=== PATIENT | male | born 1965 | race Caucasian/White ===

== ENCOUNTER 2022-12-01 06:20 | Observation (INO) ==
--- NOTE | 2022-11-16 13:29 | PAT Medication Instructions ---
Medication Instructions Date of Service November 16, 2022 Home Medications furosemide 40 mg tablet (Lasix) 40 mg PO DAILY PRN swelling indomethacin 50 mg capsule 50 mg PO Q8H PRN Pain lisinopril 20 mg tablet 20 mg PO QAM magnesium oxide 400 mg PO BID metolazone 2.5 mg tablet 2.5 mg PO 2XWK metoprolol succinate 25 mg tablet,extended release 24 hr 25 mg PO QAM potassium chloride 10 mEq capsule,extended release 10 meq PO QAM rivaroxaban 20 mg tablet (Xarelto) 20 mg PO QAM meloxicam 15 mg tablet 15 mg PO QAM rosuvastatin 5 mg tablet 5 mg PO QAM ASK your surgeon for instructions meloxicam 15 mg tablet 15 mg PO QAM indomethacin 50 mg capsule 50 mg PO Q8H PRN Pain ASK your prescriber and surgeon rivaroxaban 20 mg tablet (Xarelto) 20 mg PO QAM (From anesthesia perspective, Rivaroxaban/Xarelto needs to be stopped 72 hours/3 days before surgery. Please check if okay with doctor that prescribes this to you) DO NOT take the morning of surgery furosemide 40 mg tablet (Lasix) 40 mg PO DAILY PRN swelling lisinopril 20 mg tablet 20 mg PO QAM magnesium oxide 400 mg PO BID metolazone 2.5 mg tablet 2.5 mg PO 2XWK potassium chloride 10 mEq capsule,extended release 10 meq PO QAM Take morning of surgery With a small sip of water, OTHERWISE NOTHING TO EAT OR DRINK AFTER MIDNIGHT: metoprolol succinate 25 mg tablet,extended release 24 hr 25 mg PO QAM rosuvastatin 5 mg tablet 5 mg PO QAM Take evening before surgery furosemide 40 mg tablet (Lasix) 40 mg PO DAILY PRN swelling (if needed) magnesium oxide 400 mg PO BID Other Notes If you have any questions please call us at [phone] or [phone] or [phone] or [phone]
--- NOTE | 2022-11-22 14:02 | Anesthesiology Consultation ---
Date of Service November 22, 2022 Assessment & Plan (1) Encounter for pre-operative examination: - Check BSG AM DOS - Infectious disease screening: Per assessment on 11/22: No known infectious disease contacts or current infectious disease symptoms. - Outpatient joint assessment: Pt currently scheduled for inpatient pathway. If surgeon requests review for outpatient joint pathway, patient is not recommended candidate for outpatient joint program from anesthesia standpoint. - Heavy ETOH use: 6-8 beers/day (evening, no morning ETOH use per patient) - Cardiology visit (11/16/22): "He reports nonprogressive functional class II shortness of breath and fatigue. He gets his leg swelling but improved.. Underwent cardiac catheterization 08/07/2021 which showed normal coronaries.. Obesity hypoventilation syndrome which is likely the reason for his symptoms.. Continue auto BiPAP which is improving his symptoms and he is getting used to the machine.. He is considered at a low to intermediate cardiac risk for his right TKA. He is allowed to discontinue Xarelto for 3 days prior to surgery. No need for Lovenox bridging. - Cardiology note (11/16/22): "Low to moderate risk.. ok to stop Xarelto for 3 days prior to surgery" - Preop testing: Patient unable to void at [facility]. Per [facility] tech, patient will be taking urine sample to "[facility]" in near future- order with our return fax number given to patient. Awaiting preop UA. - Elevated creatinine: Preop creatinine 1.52 on 11/22/22 labs (comparison labs scanned into system from 11/2020 show creatinine elevated at 1.8). Do not have more recent labs/noted history of CKD reported by patient at PAT visit. Note written to PCP regarding elevated creatinine- Awaiting response ([facility]). Chart Review Chart Review: Patient seen in Pre Admission Testing History Surgery Operation Date: 12/01/22 08:50 Proposed Procedures p Right Total Knee Arthroplasty - Itz Chery MD Height/Weight Height: 6 ft Weight: 161.3 kg Allergies Allergy/AdvReac Type Severity Reaction Status Date / Time No Known Allergies Allergy Verified 11/19/22 10:41 Medications Home Medications Medication Instructions Recorded Confirmed Last Taken furosemide 40 mg tablet (Lasix) 40 mg PO DAILY PRN swelling 12/25/20 11/16/22 Unknown indomethacin 50 mg capsule 50 mg PO Q8H PRN Pain 12/25/20 11/16/22 Unknown lisinopril 20 mg tablet 20 mg PO QAM 12/25/20 11/16/22 Unknown magnesium oxide 400 mg PO BID 12/25/20 11/16/22 Unknown metolazone 2.5 mg tablet 2.5 mg PO 2XWK 12/25/20 11/16/22 Unknown metoprolol succinate 25 mg 25 mg PO QAM 12/25/20 11/16/22 Unknown tablet,extended release 24 hr potassium chloride 10 mEq 10 meq PO QAM 12/25/20 11/16/22 Unknown capsule,extended release rivaroxaban 20 mg tablet (Xarelto) 20 mg PO QAM 12/25/20 11/16/22 Unknown meloxicam 15 mg tablet 15 mg PO QAM 11/16/22 11/16/22 Unknown rosuvastatin 5 mg tablet 5 mg PO QAM 11/16/22 11/16/22 Unknown Past Medical History Medical History Atrial fibrillation Follows with Dr. Knott Last visit 11/16/22 Taking Xarelto daily Essential hypertension Hyperlipidemia Idiopathic gout, unspecified site Lumbar spondylosis Lymphedema Morbid obesity Neurogenic claudication Obstructive sleep apnea CPAP (compliant) Osteoarthritis of knee, unspecified Type 2 diabetes mellitus Per PCP records, no longer taking oral meds/working on diet control Exercise / Class Metabolic Activity III < 4 Walking/Shop/Light housework (decreased activity in setting of worsening knee pain (No CP with daily activities but does report SOB with activity)) Past Family History Family History Other No family history of adverse response to anesthesia Past Surgical History Surgical History Hx of cardiac catheterization 07/2021- no stents, "no angiographically significant coronary disease" Hx of colonoscopy Hx of knee surgery right knee, multiple Perianal abscess I&D Past Anesthesia History No Hx of Anesthesia Complications and No Family Hx of Anesthesia Complications History of PONV No Hx of PONV and No Hx of Motion Sickness Social History Smoking Status: Never smoker Do You Dip or Chew Tobacco: Yes (Daily, Advised none DOS) Hx Alcohol Use: Yes (5-6 PER DAY) Alcohol type: beer alcohol intake frequency: 3 or more drinks per day (6-8 beers/day (evening, no morning ETOH use)) Hx Substance Use: No substance use type: does not use Review of Systems + chronic GUERRERO, stable. Patient denies chest pain, shortness of breath, fever, chills, cough, wheezing, palpitations. Physical Exam Vital Signs VITALS BP 100/69 P 95 TEMP 98.7 SP02 97%RA RESP 20 PHYSICAL Full cervical extension range of motion. Full TMJ range of motion. TMD 4 finger breaths Mallampati Score 3 Dentition: missing molar Lungs: clear throughout to auscultation Cardiac: regular rate and rhythm, no murmurs noted Spine: normal Carotid arteries: negative bruit Extremities: no LE edema Thick neck Lab Results Anesthesia Preop Results Results Anesthesia Widget: WBC 7.56 K/ul (4.8-10.8) 11/22/22 Hgb 14.2 g/dl (14.0-18.0) 11/22/22 Hct 40.8 % (42.0-52.0) L 11/22/22 Plt 224 K/uL (130-400) 11/22/22 Na 131 mmol/L (136-145) L 11/22/22 K 4.5 mmol/L (3.5-5.1) 11/22/22 Cl 95 mmol/L (98-107) L 11/22/22 CO2 23 mmol/L (21-32) 11/22/22 BUN 36 mg/dl (6-23) H 11/22/22 Creat 1.52 mg/dl (0.6-1.4) H 11/22/22 Glucose Level 133 mg/dl (70-99(Fasting)) H 11/22/22 PT 12.8 Seconds (9.0-12.0) H 11/22/22 PTT 29.3 Seconds (21.0-31.0) 11/22/22 INR 1.2 (0.9-1.1) H 11/22/22 HA1c 6.4 % (4.5-5.6) H 11/22/22 Blood Type AB Positive 11/22/22 Antibody Screen NEGATIVE 11/22/22 Testing Laboratory Results *Sodium low at 131- comparison labs scanned into system from 11/2020 show sodium similarly low at 130* Electrocardiogram Date: 11/16/22 A. fib at 92bpm. Low QRS voltage in precordial leads. Possible anterior DC, of indeterminate age. Chest X-Ray Date: 11/22/22 FINDINGS: PA and lateral chest radiographs are obtained. No prior studies are available for comparison at the time of dictation. The heart is enlarged noting atherosclerotic calcification of the thoracic aorta. The pulmonary vasculature is noncongested. The lungs and pleural spaces are clear noting bibasilar atelectasis. There is no pneumothorax. The bony thorax appears intact. IMPRESSION: Cardiomegaly with no active disease in the chest. Echocardiogram Date: 06/21/22 EF 55%. Mild concentric hypertrophy. Mild RVD. Moderate LAD. Mild RAD. Mildly increased PASP. PASP 35mmhg. Normal wall motion. Stress Test Date: 06/12/21 Lexiscan stress ECG was negative for myocardial ischemia. Moderately abnormal MPI. TID = 1.20 high risk finding could suggest high risk anatomy. Possible infarct in the inferior territory. Normal LV function. Subsequent cardiac cath performed 07/2021. Cardiac Catheterization Date: 08/07/21 Left main with no angiographically evident disease. No more than mild luminal irregularities throughout the LAD and its branches. There is no angiographically evident disease in the circumflex or its branches. Medium to large caliber branching vessel with no more than mild luminal irregularities. RCA with no disease. Conclusion: No angiographically significant coronary disease. Mildly elevated left ventricular filling pressure.
[~2022-12-01 06:20] MED LIST: LR 500ML BOLUS, THEN 15ML/HR IV SCH; LR 60ML/HR IV SCH; ROPIVACAINE 0.5% HCL/PF 150 MG, BUPIVACAINE 0.75% MPF 20 ML, EPINEPHrine 0.15 MG, Ketor... INFIL SCH; TRANEXAMIC ACID 1,000 MG **IV Pre-op IV SCH
--- NOTE | 2022-12-01 06:30 | History & Physical Bridge Note ---
Date of Service December 01, 2022 History & Physical Bridge Note I have examined the patient, reviewed the History & Physical and in the interval since the performance of the History & Physical I have noted the following changes of clinical significance:consent obtained/site verified/made aware of possible tonya osteotomy secondary to knee stiffness. no changes noted
[2022-12-01] MEDS ORDERED: EPINEPHrine INJ 1 MG/ML AMP ONE (07:05)
[2022-12-01] MEDS ORDERED: BUPIVACAINE 0.5 % 5 MG/1 ML PF 10ML VIAL ONE (07:06)
[2022-12-01] MEDS ORDERED: ROPIVACAINE 0.5% 5 MG/ML 30 ML VIAL ONE (07:06)
[2022-12-01] MEDS ORDERED: fentaNYL citrate PF 100 MCG/2 ML VIAL ONE (08:03)
[2022-12-01] MEDS ORDERED: MIDAZOLAM HCL 1 MG/ML 2ML VIAL ONE ×2 (08:03→10:27)
[2022-12-01] MEDS ORDERED: ORTHO JOINT ANESTHETIC ONE (08:51)
[2022-12-01] MEDS ORDERED: ePHEDrine sulfate 50 MG/ML AMP IV PRN (09:10)
[2022-12-01] MEDS ORDERED: ATROPINE SULFATE 0.1 MG/ML 10ML SYR IV PRN (09:10)
[2022-12-01] MEDS ORDERED: VASOPRESSIN 20 UNIT/ML VIAL ONE (09:32)
[2022-12-01] MEDS ORDERED: KETAMINE 50 MG/5 ML SYRINGE ONE (09:43)
--- NOTE | 2022-12-01 11:33 | Post Operative Brief Note ---
Immediate Post Op Note v1 Date of Surgery December 01, 2022 Pre & Post Diagnosis Operation Date: 12/01/22 08:50 Pre-Op Diagnosis: Right Knee End-Stage Degenerative Joint Disease Post-Op Diagnosis: Right Knee End-Stage Degenerative Joint Disease I identified the patient and participated in the time-out.: Yes Procedure Operation Date: 12/01/22 08:50 Actual Procedures p Right Total Knee Arthroplasty(Right) - Itz Chery MD Surgeon Itz Chery MD [employer] Lieutenant Katherine/Bogdan Estimated Blood Loss 100 Findings Consistent with Post-Op Diagnosis Severe DJD with overgrown osteophytes very large Motley's cyst severe contractures diffuse chondrocalcinosis Fluids See anesthesia report Complications None
[2022-12-01] MEDS ORDERED: PROPOFOL IV EMULSION 10 MG/ML 20 ML VIAL IV ONE (11:36)
--- NOTE | 2022-12-01 11:38 | Operative Report ---
Post Operative Report Pre & Post Diagnosis Operation Date: 12/01/22 08:50 Pre-Op Diagnosis: Right Knee End-Stage Degenerative Joint Disease Post-Op Diagnosis: Right Knee End-Stage Degenerative Joint Disease I identified the patient and participated in the time-out.: Yes Procedure Operation Date: 12/01/22 08:50 Actual Procedures p Right Total Knee Arthroplasty(Right) - Itz Chery MD Surgeon Itz Chery MD Waist Pleater Katherine/Bogdan Estimated Blood Loss 100 Findings Consistent with Post-Op Diagnosis Severe osteoarthritis with marked exuberant osteophytes significant flexion contracture diffuse chondrocalcinosis deformity post high tibial osteotomy Fluids See anesthesia report Specimens Bone pathology Drains None Complications None Indications Severe disease marked pain x-rays were marked deformity failed conservative management. Description of Procedure Patient was Janisa bite site provide consent provide antibiotics from his been given the right lower extremity was prepped and draped in his routine fashion. It was discussed in detail with the patient preoperatively that he may need a Therese osteotomy due to the extensive contracture of this knee. He states he understood. He had marked incisions about the knee we utilized the most appropriate incision to try to minimize any crossing payne. This included the distal half of his ORIF of his high tibial osteotomy extended proximally. Once the site was identified and prepared it was exsanguinated with a rubber band t ourniquet inflated for a total of 78 minutes. A generous exposure was provided. Parapatellar neurotomy performed. The amount of fluid in osteophytes and synovium was excessive this was all debrided. The there was no notch was completely obliterated this was opened up with the osteotome the PCL was intact the ACL was gone. Centimeter was then made on the femur the distal femur cut 14 mm. The tibia was then subluxated menisci excised was marked deformity to the proximal tibia was measured 0 off the high side was cut extension gap was tight it was revised 2 mm the extension gap was excellent. The femur was sized between a 4 and a 3 was measured for cut 3 there was no notching. Flexion gap was excellent. There was exuberant posterior Motley's cyst which was all evacuated. Box cut was then made to size 3 fit well. Tibia was then broached and reamed for size 4. With a 10 spacer everything was stable. The alignment was excellent the patella tracked well. Should be mentioned that the in order to get to this point the Therese osteotomy was made with an osteotome with the length of the bone block being about 10 cm. This allowed excellent exposure to the knee and required and was required to get all of the bone and osteophytes excised. This also allowed us to get the contracture release. Tibia was broached and reamed to a size 4 and then the size 3 spacer with 10 mm allowed everything to be nice and stable with excellent motion. Again the patella tracked well with the osteotomy was flipped back into position. It was left attached with soft tissue distally and laterally. Patella was resected leaving 15 mm and 41 button was then seated. This tracked well as well. All trial elements were removed Orthofix injected the knee irrigated with Betadine Pulsavac and then permanent cemented into position tibia femur patella and order a 12 minutes the tourniquet was deflated minor bleeding points controlled lecture cautery at 14 minutes the knee was flexed the trial spacer removed minimal cement removal was required wound was irrigated 1 final time permanent liner seated knee reduced. The osteotomy was then reduced and secured with two 4.5 cortical screws with lag technique. Proximal screw was 58 mm distal screw was 50 mm the proximal screw screw with a good bite the distal screw with an excellent bite. With range of motion the osteotomy stayed in position there was no undue tension. Patellofemoral joint mobility was excellent. The wound was then irrigated 1 final time and closed with #2 Vicryl 2-0 Vicryl and stainless to clips appropriate dressing applied patient transferred recovery in satisfactory understanding tolerated procedure well. He will be protected weightbearing for 4 weeks based on his size because of the osteotomy he also have a protective brace on. DVT prophylaxis to resume tomorrow he is on chronic baseline medication for atrial fibrillation. Pathology pending on bone. Summary of implants size 3 posterior cruciate substituting femur size 4 tibia rotating baseplate size 3 spacer 10 mm thick posterior cruciate substituting over the 3 peg patella 2 bags of [place] G cement and 2 Synthes screws 50 and 58 mm 4.5. Pathology pending on bone. These were all J&J knee implants I attest to the content of the Intraoperative Record and any orders documented therein. Any exceptions are noted below.
--- NOTE | 2022-12-01 11:41 | Discharge Summary ---
Date of Service December 01, 2022 Admission HPI Per Admitting Provider Severe osteoarthritis right knee admitted for 23-hour observation for right total knee replacement Principal Diagnosis Severe osteoarthritis right knee Discharge Data Allergies Allergy/AdvReac Type Severity Reaction Status Date / Time No Known Allergies Allergy Verified 12/01/22 06:52 Vaccinations None Consultations None Procedures Performed Operation Date: 12/01/22 08:50 Actual Procedures p Right Total Knee Arthroplasty(Right) - Itz Chery MD Ordered Studies 12/01/22 05:00 US - OR guided needle placemen Routine Hospital Course (1) Status post right knee replacement: Plan Care management pathway for total knee replacement with osteotomy tubercle right knee Total Time Total Time Spent Total Time Spent (In Minutes): 5 minutes Discharge Plan Discharge Items Patient Disposition: Home - Home Health Services Reason For Visit: Right Knee Degenerative Joint Disease Discharge Diagnosis: Right knee s/p total knee prepalcement Condition on Discharge: Good Activity: Per Instructions section Lifting: Wait until after follow-up appointment Bathing: Keep incision dry Sexual Activity: Wait until after follow-up appointment Exercise/Sports: Wait until after follow-up appointment Weightbearing: Full weightbearing Non-emergency contact: Surgeon Call non-emergency contact if: you have any medication questions, your pain is not controlled, your temperature is above 101.5, your wound has increased redness, your wound has increased drainage and your wound pain has increased Follow-up/Referrals: PCP,NO [Physician] - Diet: Carb Consistent or DM2 Addtl Attending Provider Instructions: New Medicine: * You will likely be taking one or more of these medications: 1. Percocet - Take, as directed, when you need it, every four to six hours to control your pain. 2. Iron Sulfate - Take 1 time each day for the month after surgery to help you replace the blood lost during surgery. 3. Xarelto - Thins your blood to lessen the chance of forming a blood clot. The dose of this is different for each person and is based on your blood tests that are done twice a week. * The most common side effects of pain medicine and iron are nausea and constipation. If nausea or constipation is too much of a problem or if you have any questions about your new medicines or doses, call [facility] at . We will try to help you manage these issues. "VERY IMPORTANT TO READ AND REVIEW" Blood Clots and Blood Thinning Medicine: * You are given Xarelto during the immediate post-operative period to lessen the risk of blood clots forming in your legs and/or lungs. Pain: * The immediate post-operative period after knee replacement surgery is often quite painful. * You are given a prescription for pain medicine. You should take it, as directed, when you need it, especially before physical therapy and before going to bed. Pain that interferes with sleep is very common and can last several months. * You will likely need pain medicine for the first four to six weeks. It will not stop all of the pain. The pain will lessen and as you feel better, you may change to milder pain medicine such as Tylenol. * The most common side effects of pain medicine are nausea and constipation, so don't take more than you need. Physical Therapy: * You will have physical therapy two or three times each week for four to six weeks after your surgery in order to regain your knee range of motion and to retrain your knee to work properly. * It is just as important to make sure you are getting your knee perfectly straight as it is to regain your knee bend. * Taking a pain pill an hour before therapy can help you have a more productive and comfortable therapy session if needed. Home Exercise: * You were shown a series of exercises (heel props, heel slides, etc.) in the hospital. Do these exercises three to four times each day including the exercises you were shown in physical therapy. Walking: * Get up and walk several times each day. For the first four weeks, try not to stand or walk for more than one hour at a time. If you do stand or walk for more than one hour, you will not hurt anything, but your knee and leg will likely swell. * As you feel comfortable, you may change from the walker or crutches to a cane and then to independent walking. SELF CARE INSTRUCTIONS AFTER TOTAL KNEE REPLACEMENT A. You may need to continue a physical therapy program after discharge from the hospital. There are several options available to you. Your doctor will assist you in selecting the best one for you. 1. An out-patient facility 2 to 3 times a week for therapy or home therapy. 2. Continue working on all exercises taught to you in the hospital. Your goals should be to increase bending of your knee to 90 degrees and beyond and to fully straighten your knee. B. You may progress at your own pace from walking with a walker or crutches to a cane; then to no assistive devices. C. Make walking a part of your daily routine. Be up as much as comfortable with rest periods throughout the day. Rest with leg elevation is very important. Use the ice wrap frequently for the first 3-4 weeks. D. There are no restrictions on activities. You may ride in a car, shop, participate in fuselage framer and all social activities. E. Wear the long elastic stockings (JOSE JUAN hose) 20 hours a day for six weeks after surgery. They can be removed several times a day for laundering and for a shower. F. Do not place a pillow behind your knee when resting. A pillow at your ankle is okay. VERY IMPORTANT TO READ AND REVIEW A. Take Xarelto (blood thinning medication) as directed by your doctor. B. There are a few signs you need to watch for after you are home. Call [facility] if you notice any of the followin. Increased severe knee pain. Some pain is expected especially when you exercise. 2. Increased swelling in your leg or knee; pain or swelling of the calf muscle in either lower leg. 3. Any fluid drainage from the incision. 4. Shortness of breath or chest pain. C. Please call [facility] at if you have any concerns or questions about your operation or recovery. The doctor or his nurse will return your call promptly. D. You must take antibiotics before dental work, bladder, bowel or other surgery. Call the office to obtain a prescription at least 2 days prior to your appointment. * CALL IF INCREASED PAIN, REDNESS, DRAINAGE OR FEVER GREATER THAT 101. * Sutures should be removed 12-14 days after surgery unless you are on chronic steroids, then it will be 14-18 days after surgery. Call your doctor if: * Temperature above 101 degrees F. * Pain not relieved by pain medicine ordered. * Increased drainage or redness from incision. * Notify your doctor with any questions or concerns. Use you knee immobilizer at all times to protect your knee Use your walker for ambulation follow up in the office on 12/09 with Artis for wound vac removal continue your Xarelto Continue Keflex 500mg 1 pill 3 x day x 7 days Pending Studies at Discharge: Yes (Bone pathology) Stand-Alone Forms: My [facility], Smoking Cessation Medications and DC Order Prescriptions: No Action metolazone 2.5 mg tablet 2.5 mg PO 2XWK metoprolol succinate 25 mg tablet extended release 24 hr 25 mg PO QAM potassium chloride 10 mEq capsule, extended release 10 meq PO QAM Xarelto 20 mg tablet 20 mg PO QAM Rx Instructions: must administer with evening meal magnesium oxide 400 mg magnesium capsule 400 mg PO BID furosemide [Lasix] 40 mg tablet 40 mg PO DAILY PRN (Reason: swelling ) Rx Instructions: take 1-2 tab PO every day as needed indomethacin 50 mg capsule 50 mg PO Q8H PRN (Reason: Pain) Rx Instructions: administer with food or milk lisinopril 20 mg tablet 20 mg PO QAM meloxicam 15 mg Tablet 15 mg PO QAM rosuvastatin 5 mg Tablet 5 mg PO QAM Admission Data Admit Date/Time: 12/01/22 12:02 Attending Provider: Itz Chery Admit Provider: Itz Chery Primary Care Provider: Dennise Greer
--- NOTE | 2022-12-01 11:42 | Operative Report ---
Post Operative Report Pre & Post Diagnosis Operation Date: 12/01/22 08:50 Pre-Op Diagnosis: Right Knee End-Stage Degenerative Joint Disease Post-Op Diagnosis: Right Knee End-Stage Degenerative Joint Disease I identified the patient and participated in the time-out.: Yes Procedure Operation Date: 12/01/22 08:50 Actual Procedures p Right Total Knee Arthroplasty(Right) with Therese osteotomy extensor mechanism entrapment- Itz Chery MD Surgeon Itz Chery MD System Validation Engineer Katherine/Bogdan Estimated Blood Loss 100 Findings Consistent with Post-Op Diagnosis See previous report Specimens See previous report Description of Procedure See previous report I forgot to mention the Therese osteotomy in detail with the procedure I attest to the content of the Intraoperative Record and any orders documented therein. Any exceptions are noted below.
[2022-12-01] MEDS ORDERED: PHENYLEPHRINE 100MCG/ML 5ML SYR ONE (11:47)
--- NOTE | 2022-12-01 11:54 | Orthopedic Progress Note ---
Date of Service December 01, 2022 Assessment & Plan (1) Status post right knee replacement: Plan Doing well status post right total knee replacement with Therese osteotomy continue with appropriate care pathway knee protected weightbearing in a brace for 6 weeks based on the osteotomy. Can start range of motion 0-90 to tolerance. Keep touchdown weightbearing due to his size. Resume his atrial fibrillation DVT PE prophylaxis. Orthopedic Progress Note Status post right total knee replacement. Denies chest pain shortness of breath fever chills nausea memory headache. Vital signs are stable. Neurovascular check is already revealing extension of his toes and his ankle indicating fibular nerve peroneal nerve intact. X-rays pending.
--- NOTE | 2022-12-01 12:09 | Anesthesiology Progress Note ---
Date of Service December 01, 2022 Anesthesia Post Procedure Vital Signs Vital Signs: Temp Pulse Resp BP Pulse Ox O2 Del Method 12/01/22 06:58 37.1 C 93 H 20 106/56 L 95 Room Air Transfer of Care Handoff Completed per policy Notes Mental Status: alert / awake / arousable Patient Amnestic to Procedure: Yes Nausea / Vomiting: adequately controlled Pain: adequately controlled Airway Patency, RR, SpO2: stable & adequate BP & HR: stable & adequate Hydration State: stable & adequate Neuraxial Anesthesia: was administered and sensory block is resolving Anesthetic Complications: no major complications apparent
--- NOTE | 2022-12-01 12:16 | Operative Report ---
Post Operative Report Pre & Post Diagnosis Operation Date: 12/01/22 08:50 Pre-Op Diagnosis: Right Knee End-Stage Degenerative Joint Disease Post-Op Diagnosis: Right Knee End-Stage Degenerative Joint Disease I identified the patient and participated in the time-out.: Yes Procedure Operation Date: 12/01/22 08:50 Actual Procedures p Right Total Knee Arthroplasty with Right Tibial Osteotomy(Right) - Itz Chery MD Surgeon Itz Chery MD Case Assembler Katherine/Bogdan Estimated Blood Loss 100 Findings Consistent with Post-Op Diagnosis See detailed operative note. Specimens See detailed operative note. Description of Procedure See detailed operative note. I attest to the content of the Intraoperative Record and any orders documented therein. Any exceptions are noted below.
--- NOTE | 2022-12-01 12:18 | Operative Report ---
Post Operative Report Pre & Post Diagnosis Operation Date: 12/01/22 08:50 Pre-Op Diagnosis: Right Knee End-Stage Degenerative Joint Disease Post-Op Diagnosis: Right Knee End-Stage Degenerative Joint Disease I identified the patient and participated in the time-out.: Yes Procedure Operation Date: 12/01/22 08:50 Actual Procedures p Right Total Knee Arthroplasty with Right Tibial Osteotomy(Right) - Itz Chery MD Surgeon GLEN Chery MD Data Analytics Developer Katherine/Bogdan GARCIA Estimated Blood Loss 100 Findings Consistent with Post-Op Diagnosis see operative report Specimens see operative report Drains none Complications none Disposition Accompanied Patient To Recovery: Yes Indications This 57 year old male presented to the office for complaints of persisting right knee pain. He had tried conservative care measures without improvement. He elected to proceed with surgical invention after being educated about potential risks and outcomes. Preoperative imaging was obtained Description of Procedure The patient was administered a spinal anesthetic and then taken to the operating room where he was given sedation. He was prepped and draped in the usual sterile fashion. Please see Dr. Chery's operative report for specifics of the procedure. I was present for the entire case from initial patient positioning through final wound closure. Assistance was provided in tissue retraction, hemostasis, trial implant placement, final implant placement, and final wound closure. The patient was taken to the recovery room in satisfactory condition. I attest to the content of the Intraoperative Record and any orders documented therein. Any exceptions are noted below.
[2022-12-01] MEDS ORDERED: METOCLOPRAMIDE HCL INJ 5 MG/ML 2 ML VIAL IV PRN (12:38)
[2022-12-01] MEDS ORDERED: MAGNESIUM HYDROXIDE SUSP 30 ML UDC PO PRN (12:38)
[2022-12-01] MEDS ORDERED: VANCOMYCIN CONSULT ACTIVE PRN (12:38)
[2022-12-01] MEDS ORDERED: ONDANSETRON INJ 2 MG/ML 2 ML VIAL IV PRN (12:38)
[2022-12-01] MEDS ORDERED: HYDROmorphone INJ 0.5 MG/0.5 ML SYR IV PRN (12:38)
[2022-12-01] MEDS ORDERED: ALUMINUM/MAGNESIUM SUSP 30 ML UDC PO PRN (12:38)
[2022-12-01] MEDS ORDERED: TAMSULOSIN HCL 0.4 MG CAP PO PRN (12:38)
[2022-12-01] MEDS ORDERED: bisacodyL 10 MG SUPP PR PRN (12:38)
[2022-12-01] MEDS ORDERED: diphenhydrAMINE 50 MG/ML VIAL IV PRN (12:38)
[2022-12-01] MEDS ORDERED: NALOXONE HCL 0.4 MG/1 ML VIAL/CARP IV PRN (12:38)
[2022-12-01] MEDS ORDERED: SODIUM CHLORIDE 0.9% 1,000 ML IV SCH (12:38)
[2022-12-01] MEDS ORDERED: FUROSEMIDE 40 MG TAB PO PRN (12:38)
--- NOTE | 2022-12-01 12:49 | XRay Report ---
XR knee RT 1 or 2V routine CLINICAL HISTORY: S/P R TKA with tubercle osteotomy TECHNIQUE: 2 views of the right knee were obtained. Comparison: Comparison is made to right knee radiographs 09/10/2022 FINDINGS: Patient is status post total knee arthroplasty with expected postsurgical changes including soft tiss ue swelling and subcutaneous emphysema. No periarticular lucency or hardware fracture is seen. IMPRESSION: Expected postoperative appearance status post placement of total knee arthroplasty. ACT 112: Negative or not required by law. Electronically signed by: Andrea Weaver M.D. 12/01/2022 12:48 PM
[2022-12-01] MEDS: oxyCODONE HCL IR 5 MG TAB (IMMEDIATE RELEASE) PO PRN ×2 (13:21→19:52)
[2022-12-01] MEDS ORDERED: VANCOMYCIN HCL 2,000 MG in SODIUM CHLORIDE 0.9% 500 ML IV SCH (14:00)
[2022-12-01] MEDS: KETOROLAC 30 MG/ML VIAL IV SCH ×2 (15:42→21:58)
[2022-12-01] MEDS: ASCORBIC ACID 500 MG TAB PO SCH (17:04)
[2022-12-01] MEDS: FERROUS GLUCONATE 324 MG TAB PO SCH (17:05)
[2022-12-01] MEDS: ceFAZolin 2000MG 2,000 MG/15 ML SYR IV SCH (17:06)
[2022-12-01] MEDS ORDERED: TRANEXAMIC ACID / 0.7% NACL 1,000 MG/100 ML BAG IV SCH (18:00)
[2022-12-01] MEDS: MAGNESIUM OXIDE 400 MG TAB PO SCH (19:53)
[2022-12-01] MEDS: DOCUSATE SODIUM 100 MG CAP PO SCH (19:53)
[2022-12-01] MEDS ORDERED: SENNA 8.6 MG TAB PO SCH (21:00)
[2022-12-01] MEDS: ACETAMINOPHEN 500 MG TAB PO SCH (21:57)
[2022-12-02] MEDS: ceFAZolin 2000MG 2,000 MG/15 ML SYR IV SCH (00:53)
[2022-12-02] MEDS: KETOROLAC 30 MG/ML VIAL IV SCH ×2 (04:44→10:00)
[2022-12-02] MEDS: ACETAMINOPHEN 500 MG TAB PO SCH (06:09)
[2022-12-02 06:40] LABS: Hematocrit (blood only) 32.9 % (42.0-52.0); Mean Corpuscular Hemoglobin 30.3 pg (25.0-34.0); Mean Corpuscular Hgb Conc 33.4 g/dL (32.0-36.0); Mean Corpuscular Volume 90.6 fL (80.0-100.0); Mean Platelet Volume 8.7 fL (9.4-12.4); Platelet Count 194 K/uL (130-400); RDW Coefficient of Variation 13.1 % (11.5-14.5); RDW Standard Deviation 42.8 fL (36.4-46.3); Red Blood Count 3.63 M/uL (4.70-6.10); White Blood Count 12.35 K/ul (4.8-10.8)
[2022-12-02 07:00] LABS: BUN Creatinine Ratio 23.9 (10-20); Calcium 8.9 mg/dl (8.6-10.3); Creatinine Clr Calc Pharmacy 78.3 ml/min; Est GFR (African American) 54.6 ml/min; Est GFR (Non-African American) 47.2 ml/min; Potassium 4.4 mmol/L (3.5-5.1)
[2022-12-02] MEDS ORDERED: dexAMETHasone 10 MG in SYRINGE 0 ML IV SCH (08:00)
[2022-12-02] MEDS: ASCORBIC ACID 500 MG TAB PO SCH (08:01)
[2022-12-02] MEDS: MAGNESIUM OXIDE 400 MG TAB PO SCH (08:01)
[2022-12-02] MEDS: DOCUSATE SODIUM 100 MG CAP PO SCH (08:02)
[2022-12-02] MEDS: FERROUS GLUCONATE 324 MG TAB PO SCH (08:02)
--- NOTE | 2022-12-02 08:03 | Orthopedic Progress Note ---
Date of Service December 02, 2022 Assessment & Plan (1) Status post right knee replacement: Plan Care management pathway for total knee replacement with osteotomy tubercle right knee Admission and Anticipated Discharge Date Admission Date: December 01, 2022 Subjective Did well overnight is no major issues. Pain is well controlled. Vital signs are stable he is afebrile. Neurovascular check femoral sciatic nerve is normal. Wound dressing clean dry and intact calves nontender. A.m. labs are excellent. Assessment doing well status post right total knee replacement with Therese osteotomy. Plan is to continue appropriate care management program discharge today resume his anticoagulation today. [place] to be placed today. Results & Data Vital Signs (Past 12 Hours) Vital Signs Temp Pulse Resp BP Pulse Ox O2 Del Method 12/02/22 07:35 36.7 C 86 16 110/72 98 Room Air 12/02/22 04:09 36.8 C 89 18 115/78 98 Room Air 12/01/22 23:00 36.6 C 86 18 105/71 95 Room Air
[2022-12-02] MEDS ORDERED: ROSUVASTATIN CALCIUM 5 MG TAB PO SCH (09:00)
[2022-12-02] MEDS ORDERED: RIVAROXABAN 20 MG TAB PO SCH (09:00)
[2022-12-02] MEDS ORDERED: POTASSIUM CHLORIDE 10 MEQ TABCR PO SCH (09:00)
[2022-12-02] MEDS ORDERED: METOPROLOL SUCC 25MG EXT REL TAB PO SCH (09:00)
[2022-12-02] MEDS ORDERED: MULTIVITAMIN TAB PO SCH (09:00)
[2022-12-02] MEDS ORDERED: lisinopril 20 MG TAB PO SCH (09:00)
--- NOTE | 2022-12-02 10:28 | Discharge Summary ---
Date of Service December 02, 2022 Admission HPI Per Admitting Provider Severe osteoarthritis right knee admitted for 23-hour observation for right total knee replacement Principal Diagnosis Status post right knee replacement Discharge Data Allergies Allergy/AdvReac Type Severity Reaction Status Date / Time No Known Allergies Allergy Verified 12/01/22 06:52 Vaccinations None Consultations None Procedures Performed Operation Date: 12/01/22 08:50 Actual Procedures p Right Total Knee Arthroplasty with Right Tibial Osteotomy(Right) - Itz Chery MD Ordered Studies 12/01/22 05:00 US - OR guided needle placemen Routine Hospital Course (1) Status post right knee replacement: Continue care plan Plan Care management pathway for total knee replacement with osteotomy tubercle right knee Total Time Total Time Spent Total Time Spent (In Minutes): 5 minutes Discharge Plan Discharge Items Patient Disposition: Home - Home Health Services Reason For Visit: Right Knee Degenerative Joint Disease Discharge Diagnosis: Right knee s/p total knee prepalcement Condition on Discharge: Good Activity: Per Instructions section Lifting: Wait until after follow-up appointment Bathing: Keep incision dry Sexual Activity: Wait until after follow-up appointment Exercise/Sports: Wait until after follow-up appointment Weightbearing: Full weightbearing Non-emergency contact: Surgeon Call non-emergency contact if: you have any medication questions, your pain is not controlled, your temperature is above 101.5, your wound has increased redness, your wound has increased drainage and your wound pain has increased Follow-up/Referrals: PCP,NO [Physician] - Diet: Carb Consistent or DM2 Addtl Attending Provider Instructions: New Medicine: * You will likely be taking one or more of these medications: 1. Percocet - Take, as directed, when you need it, every four to six hours to control your pain. 2. Iron Sulfate - Take 1 time each day for the month after surgery to help you replace the blood lost during surgery. 3. Xarelto - Thins your blood to lessen the chance of forming a blood clot. The dose of this is different for each person and is based on your blood tests that are done twice a week. * The most common side effects of pain medicine and iron are nausea and constipation. If nausea or constipation is too much of a problem or if you have any questions about your new medicines or doses, call [facility] at . We will try to help you manage these issues. "VERY IMPORTANT TO READ AND REVIEW" Blood Clots and Blood Thinning Medicine: * You are given Xarelto during the immediate post-operative period to lessen the risk of blood clots forming in your legs and/or lungs. Pain: * The immediate post-operative period after knee replacement surgery is often quite painful. * You are given a prescription for pain medicine. You should take it, as directed, when you need it, especially before physical therapy and before going to bed. Pain that interferes with sleep is very common and can last several months. * You will likely need pain medicine for the first four to six weeks. It will not stop all of the pain. The pain will lessen and as you feel better, you may change to milder pain medicine such as Tylenol. * The most common side effects of pain medicine are nausea and constipation, so don't take more than you need. Physical Therapy: * You will have physical therapy two or three times each week for four to six weeks after your surgery in order to regain your knee range of motion and to retrain your knee to work properly. * It is just as important to make sure you are getting your knee perfectly straight as it is to regain your knee bend. * Taking a pain pill an hour before therapy can help you have a more productive and comfortable therapy session if needed. Home Exercise: * You were shown a series of exercises (heel props, heel slides, etc.) in the hospital. Do these exercises three to four times each day including the exercises you were shown in physical therapy. Walking: * Get up and walk several times each day. For the first four weeks, try not to stand or walk for more than one hour at a time. If you do stand or walk for more than one hour, you will not hurt anything, but your knee and leg will likely swell. * As you feel comfortable, you may change from the walker or crutches to a cane and then to independent walking. SELF CARE INSTRUCTIONS AFTER TOTAL KNEE REPLACEMENT A. You may need to continue a physical therapy program after discharge from the hospital. There are several options available to you. Your doctor will assist you in selecting the best one for you. 1. An out-patient facility 2 to 3 times a week for therapy or home therapy. 2. Continue working on all exercises taught to you in the hospital. Your goals should be to increase bending of your knee to 90 degrees and beyond and to fully straighten your knee. B. You may progress at your own pace from walking with a walker or crutches to a cane; then to no assistive devices. C. Make walking a part of your daily routine. Be up as much as comfortable with rest periods throughout the day. Rest with leg elevation is very important. Use the ice wrap frequently for the first 3-4 weeks. D. There are no restrictions on activities. You may ride in a car, shop, participate in aquatics assistant department head and all social activities. E. Wear the long elastic stockings (JOSE JUAN hose) 20 hours a day for six weeks after surgery. They can be removed several times a day for laundering and for a shower. F. Do not place a pillow behind your knee when resting. A pillow at your ankle is okay. VERY IMPORTANT TO READ AND REVIEW A. Take Xarelto (blood thinning medication) as directed by your doctor. B. There are a few signs you need to watch for after you are home. Call [facility] if you notice any of the followin. Increased severe knee pain. Some pain is expected especially when you exercise. 2. Increased swelling in your leg or knee; pain or swelling of the calf muscle in either lower leg. 3. Any fluid drainage from the incision. 4. Shortness of breath or chest pain. C. Please call [facility] at if you have any concerns or questions about your operation or recovery. The doctor or his nurse will return your call promptly. D. You must take antibiotics before dental work, bladder, bowel or other surgery. Call the office to obtain a prescription at least 2 days prior to your appointment. * CALL IF INCREASED PAIN, REDNESS, DRAINAGE OR FEVER GREATER THAT 101. * Sutures should be removed 12-14 days after surgery unless you are on chronic steroids, then it will be 14-18 days after surgery. Call your doctor if: * Temperature above 101 degrees F. * Pain not relieved by pain medicine ordered. * Increased drainage or redness from incision. * Notify your doctor with any questions or concerns. Use you knee immobilizer at all times to protect your knee Use your walker for ambulation follow up in the office on 12/09 with Artis for wound vac removal continue your Xarelto Continue Doxycycline 100mg 1 pill 2 x day x 7 days Pending Studies at Discharge: Yes (Bone pathology) Stand-Alone Forms: My [facility], Smoking Cessation Medications and DC Order Prescriptions: New doxycycline hyclate 100 mg capsule 100 mg PO BID 7 Days Qty: 14 0RF No Action metolazone 2.5 mg tablet 2.5 mg PO 2XWK metoprolol succinate 25 mg tablet extended release 24 hr 25 mg PO QAM potassium chloride 10 mEq capsule, extended release 10 meq PO QAM Xarelto 20 mg tablet 20 mg PO QAM Rx Instructions: must administer with evening meal magnesium oxide 400 mg magnesium capsule 400 mg PO BID furosemide [Lasix] 40 mg tablet 40 mg PO DAILY PRN (Reason: swelling ) Rx Instructions: take 1-2 tab PO every day as needed indomethacin 50 mg capsule 50 mg PO Q8H PRN (Reason: Pain) Rx Instructions: administer with food or milk lisinopril 20 mg tablet 20 mg PO QAM meloxicam 15 mg Tablet 15 mg PO QAM rosuvastatin 5 mg Tablet 5 mg PO QAM Admission Data Admit Date/Time: 12/01/22 12:02 Attending Provider: Itz Chery Admit Provider: Itz Chery Primary Care Provider: Dennise Greer Other Providers: [facility],Home Healthcare Other Interventions: Discharge Summary Assessment (RN) Last Done: 12/02/22 09:09
--- NOTE | 2022-12-02 11:21 | Orthopedic Progress Note ---
Date of Service December 02, 2022 Assessment & Plan (1) Status post right knee replacement: Plan: The patient was educated regarding today's findings. A Prevena wound VAC was placed on his leg. Compression stockings were applied. He was placed back in his knee brace in full extension. Brace straps were adjusted. He will be discharged today with home health services. There is supposed to be evaluating him tomorrow. Prescriptions for Percocet 5/325 mg and doxycycline 100 mg twice daily x7 days were sent to his pharmacy. He has resumed his Xarelto today. Continue it daily. Importance of keeping his knee brace on was discussed at length. He may am bulate using his walker. His hinges are set to 40 degrees. He may do range of motion exercises with his therapist, but should otherwise leave the brace locked in extension. Follow-up with me on at 11 AM for removal of his Prevena. Importance of ice and elevation was reviewed with the patient. Written discharge instructions were provided. Call with any other concerns. Admission and Anticipated Discharge Date Admission Date: December 01, 2022 Subjective This 57-year-old male is seen today in his room. He is 1 day status post right total knee arthroplasty. He states he did fine overnight. He has very little pain at this time. He has been out of bed and has walked around the hallway a few times. He is ready to go home. He denies any chest pain, shortness of breath, nausea, vomiting, or abdominal pain. No other complaints. Physical Exam Physical Exam: General: Well-developed, well-nourished, middle-aged male, in no acute distress. Sitting in bed. Alert and oriented. Conversive. His brace is in place on the right leg. Skin: Warm and dry with good turgor. Postsurgical dressings are in place on the right leg. Upon removal, he has a considerable amount of bloody drainage on the dressings. There is some strikethrough on the inner Cristobal wrap's. There is no active bleeding from his surgical site at this time. Skin edges are well jameson roximated. [place] are in place. Expected postoperative edema. No ecchymosis. Musculoskeletal: The patient is able to perform straight leg raise with some assistance. He has intact motor function of his ankle and toes. Flexion of the knee was not attempted. Neurologic: Gross sensation is intact across the right leg by soft touch. Peripheral pulses are 2+. Results & Data Vital Signs (Past 12 Hours) Vital Signs Temp Pulse Resp BP Pulse Ox O2 Del Method 12/02/22 10:55 36.5 C 91 H 18 142/82 H 95 Room Air 12/02/22 09:09 36.7 C 86 16 110/72 98 12/02/22 07:35 36.7 C 86 16 110/72 98 Room Air 12/02/22 04:09 36.8 C 89 18 115/78 98 Room Air Laboratory Results CBC obtained today shows a white count of 12.35. H&H of 11.0 and 32.9. Platelets 194,000. Sodium 133, potassium 4.4, chloride 95, CO2 31. BUN of 38 and creatinine 1.59. These are consistent with his baseline. Glucose 161 today.
[2022-12-02] MEDS: oxyCODONE HCL IR 5 MG TAB (IMMEDIATE RELEASE) PO PRN (11:40)
[2022-12-04] MEDS ORDERED: metOLazone 2.5 MG TABLET PO SCH (08:00)
--- NOTE | 2022-12-06 11:16 | Operative Report ---
Post Operative Report Pre & Post Diagnosis Operation Date: 12/01/22 08:50 Pre-Op Diagnosis: Right Knee End-Stage Degenerative Joint Disease Post-Op Diagnosis: Right Knee End-Stage Degenerative Joint Disease I identified the patient and participated in the time-out.: Yes Procedure Operation Date: 12/01/22 08:50 Actual Procedures p Right Total Knee Arthroplasty with Right Tibial Osteotomy(Right) - Itz Chery MD Surgeon Itz Chery MD Supervisor Rides Katherine/Bogdan Estimated Blood Loss 100 Findings Consistent with Post-Op Diagnosis Same as postop diagnosis Specimens None Description of Procedure See detailed op note. I attest to the content of the Intraoperative Record and any orders documented therein. Any exceptions are noted below.
== END 2022-12-02 12:10 | disposition home health service (06) ==
LOC: 3E 06:20 → ASU 06:20